=== PATIENT | female | born 1955 | race Caucasian/White ===

== ENCOUNTER 2019-12-26 14:16 | Outpatient (CLI) | payer MEDICARE, MEDICAID, SELFPAY ==
--- NOTE | 2019-12-26 19:27 | ONC CON_ITS ---
Dr. Smith Trinidad Patient Note Patient: Amanda Calle Unit #: [id number]: 1955 Dicatated By: Perez Mtz M.D.Date of Visit: December 26, 2019 Onc MED New Patient/Consult Referring Physician: Trini Nassar Chief Complaint: Colon cancer and anemia. 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 She also has iron deficiency anemia. Her colon cancer has been diagnosed in May 2017 after she had presented to the emergency room with abdominal pain and constipation. Her CT abdomen/pelvis showed circumferential irregular wall thickening with pericolonic fat induration involving a segment of a sending colon measuring at least 8.1 cm. There were associated right lower quadrant lymph nodes measuring up to 9 mm. Colonoscopy showed a partially obstructing malignant appearing mass at the hepatic flexure estimated at 6 x 5 cm. Biopsy showed low-grade infiltrating adenocarcinoma. Her CEA was elevated at 8.8 ng/mL. She opted to go to [facility] in [place] for surgery. I do not have those reports available. Her tumor apparently was able to be resected. She indicates that there were involved lymph nodes, but she declined any further treatment. In October she was seen for a follow-up visit by Eileen Valdez. She was found to be significantly anemic with her CBC on 11/07/2019 showed hemoglobin low at 8.0 g with white blood cell count 9100 and platelet count 329,000. The red cell indices were hypochromic/microcytic. Her repeat CBC on 11/28/2019 showed hemoglobin still low at 9.1 g with white blood cell count 11,200 and platelet count 429,000. Comprehensive metabolic profile at that time was unremarkable. Her renal function was normal with BUN 8 and creatinine 0.74 mg/dL. The total bilirubin and liver enzymes were normal. Her serum iron was low at 26 mcg/dL with transferrin saturation 5%. Ferritin also was low at 4 ng/mL. Her vitamin B12 level was normal at 355 pg/mL. She complains that she has been feeling tired all the time. She does not have much activity, but she is living independently and doing housework. ECOG score is 1. Her appetite is not good. Her weight is down a little. She does not have fever or night sweats. She does have shortness of breath. She has cough which is sometimes productive of clear or white mucus. She does not complain of chest pain. She has not been having nausea. She has had ongoing problems with constipation and at times she has had some pain in the right lower quadrant area. She has not been aware of any blood in the stool. Bladder function has been okay. She has generalized joint pain. It is being managed with a long-acting oxycodone preparation in combination with hydrocodone/APAP. She does not complain of headache or dizziness. She does have numbness/tingling in her hands and feet, but it is intermittent. She also complains of having a lot of muscle cramping. Past Medical History: Her medical history includes chronic obstructive pulmonary disease, type II diabetes, hyperlipidemia, hypertension, obstructive sleep apnea, and osteoarthritis. She has a history of diverticulitis. Past Surgical History: Her other surgical/procedural history includes appendectomy and cholecystectomy, colonoscopy in 2013 and in May 2017, hemorrhoidectomy, right carpal tunnel release, and right knee surgery. Medications: Baclofen 0.5 Tablet (of 10 mg) Oral t.i.d. PRN, Benadryl Allergy 2 Tablet (of 25 mg) Oral at bedtime, calcium magnesium zinc 1 Tablet at bedtime, Cetirizine HCl 1 Tablet (of 10 mg) Oral daily, Cinnamon 1 Capsule (of 1000 mg) Oral at bedtime, ClearLax 1 tablespoonful(s) Powder Oral PRN, [facility] Senna 1 Tablet (of 8.6 mg) Oral daily, Docusate Sodium 1 Capsule (of 100 mg) Oral daily, Folic Acid 1 Tablet (of 800 mcg) Oral at bedtime, glipiZIDE 1 Tablet (of 10 mg) Oral b.i.d. PRN, HYDROcodone-Acetaminophen 1 Tablet (of 10-325 mg) Oral four times a day PRN, Ibuprofen 3 Capsule (of 200 mg) Oral PRN, Linzess 1 Capsule (of 145 mcg) Oral PRN, Melatonin 1 Tablet (of 10 mg) Oral at bedtime, Montelukast Sodium 1 Tablet (of 10 mg) Oral daily, ProAir HFA 1 Puff(s) (of 108 (90 base) mcg/act) Aerosol, solution Inhalation t.i.d. PRN, Turmeric 1 Capsule (of 500 mg) Oral at bedtime, Vitamin D3 2 Capsule (of 1000 Units) Oral at bedtime, Xtampza ER 1 Capsule Capsule Delayed Release Oral b.i.d. Allergies: Aspirin, Keflex, Metals, and Sulfa Antibiotics. Social History: Ms. Calle is . She has a long history of smoking, in the range of 1 pack of cigarettes daily. She does not drink alcohol. Family History: Father of colon cancer at age 62 and a sister with colon cancer in her 50s. Mother age 87, cause unknown to the patient. Review Of Symptoms: Constitutional - Activity has decreased. She has a lot of fatigue. She is able to do work around the house. Appetite is good. She has lost a couple of pounds. No fever, chills, hot flashes, or night sweats. ECOG score is 1, Eyes - No change in vision, ENMT - No hearing loss or tinnitus. She has sinus congestion/drainage. No mouth sores. No sore throat or difficulty swallowing, Hematologic/Lymphatic - No abnormal bruising or bleeding, Respiratory - She has intermittent shortness of breath with activity. She has a dry cough most of the time. It is sometimes jproductive of clear sputum. No pleuritic pain or hemoptysis, Cardiovascular - No angina pain. No palpitations, Gastrointestinal - No nausea or vomiting. No heartburn or acid reflux. She has chronic constipation. She has occasional aching pain in her lower abdomen. No blood in the stool or black stools, Genitourinary (F) - No dysuria or hematuria. No urinary frequency. No urgency or incontinence, Musculoskeletal - She has constant aching pain in her bones, Integumentary - No skin rashes, Neurologic - No headache. She has dizziness if she stands up quickly. She has intermittent numbness/paresthesias in her feet, legs, and hands. She has frequent muscle spasms, Psychiatric - No anxiety or depression. No insomnia. Vital Signs: Performed on December 26, 2019 15:16: 6, 27.84, 1.79 sq.m, 64.00 in, 98 %, 79 /min, 24 /min, 134/72 mm(hg), 98.4 F, and 162.2 lbs (HIGH). Physical Examination: Constitutional - She appears generally weak and pale, and she is short of breath with effort, Eyes - Sclerae nonicteric. Conjunctivae clear, ENMT - No lesions noted in the oral cavity, Neck - No mass or thyromegaly, Hematologic/Lymphatic - No cervical, clavicular, or axillary adenopathy, Respiratory - Lungs show diminished air movement bilaterally. There are mild expiratory rhonchi bilaterally and there is also mild wheezing, Cardiovascular - Heart rhythm is regular. There is no murmur, gallop, or rub noted, Abdomen - Moderately distended and firm. Liver and spleen are not enlarged. There is no abdominal mass or ascites noted and there is no inguinal adenopathy, Back/Spine - No spine or CVA tenderness noted, Extremities - No edema. Dorsalis pedis pulses are palpable bilaterally, Integumentary - No rashes. No suspicious skin lesions noted, Neurologic - No focal neurologic deficits noted. Impression: 1. Patient with low-grade infiltrating adenocarcinoma involving the hepatic flexure of the colon. She underwent surgical resection in May 2017. Staging information is not available at this time. She declined any further treatment. 2. She has iron deficiency anemia. It is uncertain to what extent that may be due to GI blood loss versus inadequate oral iron absorption. In the past she has been intolerant of oral iron supplements due to constipation and nausea. Her other medical illnesses include: 3. COPD, which appears to be poorly controlled. 4. Hypertension. 5. Hyperlipidemia. 6. Type 2 diabetes. 7. Obstructive sleep apnea. 8. Osteoarthritis with chronic pain. 9. She has chronic constipation. Plan: As she clearly has iron deficiency anemia and she has been intolerant of oral iron supplements, she will be scheduled for parenteral iron replacement with 2 infusions of Injectafer. She will have additional laboratory studies at that time which will include a CEA level. In the meantime, I will request records from [facility]. In addition, I will see if I get her started on a pulmonary nebulizer and I also will have her start Spiriva for the COPD, subject to verification of insurance coverage. I also have recommended that she change her bowel regimen to senna with docusate 2 tablets once or twice daily. I will also consider adding Amitiza later, as necessary. Signed By: Perez Mtz M.D. <<Signature on File>>
== END 2019-12-26 14:17 | disposition home or self-care (01) ==
PROVIDERS: PCP Nurse Practitioner Family; Visit Provider Internal Medicine Medical Oncology
DX: D50.9 Iron deficiency anemia, unspecified (principal); C18.3 Malignant neoplasm of hepatic flexure; J44.9 Chronic obstructive pulmonary disease, unspecified; I10 Essential (primary) hypertension; E78.5 Hyperlipidemia, unspecified; F17.210 Nicotine dependence, cigarettes, uncomplicated; E11.9 Type 2 diabetes mellitus without complications; G47.33 Obstructive sleep apnea (adult) (pediatric); M19.90 Unspecified osteoarthritis, unspecified site; K59.09 Other constipation; Z90.49 Acquired absence of other specified parts of digestive tract
CPT/HCPCS: 99215

== ENCOUNTER 2020-01-03 13:59 | Outpatient (CLI) | payer MEDICARE, MEDICAID, SELFPAY ==
[2020-01-03] MEDS: sodium chloride 0.9% (100 ml) 100 ML (15:05)
[2020-01-03] MEDS: ferric carboxy (IVPB) 750 MG in sodium chloride 0.9% (100 ml) 100 ML 345 MG IV (15:05)
== END 2020-01-03 14:00 | disposition home or self-care (01) ==
PROVIDERS: PCP Nurse Practitioner Family; Visit Provider Internal Medicine Medical Oncology
DX: D50.9 Iron deficiency anemia, unspecified (principal)
CPT/HCPCS: 96365; J1439

== ENCOUNTER 2020-01-04 08:55 | Outpatient (CLI) | payer MEDICARE, MEDICAID, SELFPAY ==
[2020-01-04 10:31] LABS: Basophils # 0.1 10^3/uL (0.0-0.1); Basophils % 0.9 %; Eosinophils # 0.4 10^3/uL (0.0-0.8); Eosinophils % 3.7 %; Hematocrit 32.3 % (37.0-47.0); Lymphocytes # 4.2 10^3/uL (0.8-4.8); Lymphocytes % 36.1 %; Mean Corpuscular HGB Conc 27.9 g/dL (30.0-36.0); Mean Corpuscular Hemoglobin 19.6 pg (28.0-34.0); Mean Corpuscular Volume 70.4 fL (81-99); Mean Platelet Volume 10.7 fL (7.4-10.4); Monocytes # 0.9 10^3/uL (0.2-0.9); Monocytes % 7.4 %; Neutrophils % 51.1 %; Nucleated Red Blood Cells % 0 %; Platelet Count 366 10^3/cmm (130-400); Red Blood Count 4.59 10^6/uL (4.1-5.3); Red Cell Distribution Width 18.6 % (12.1-15.1); White Blood Count 11.6 10^3/uL (4.0-10.0)
[2020-01-04 10:57] LABS: Alanine Aminotransferase 14 U/L (0-33); Albumin Level 4.2 g/dL (3.5-5.2); Alkaline Phosphatase 86 IU/L (35-105); Anion Gap 15.8 (5-19); Aspartate Amino Transferase 15 U/L (0-32); Blood Urea Nitrogen 6 mg/dL (8-23); Calcium 10.1 mg/dL (8.5-10.5); Carbon Dioxide 28 mmol/L (22-29); Chloride 101 mmol/L (98-107); Globulin 2.8 g/dL (1.3-4.6); Glomerular Filtration Rate 101.3 mL/min (90-130); Glucose 81 mg/dL (65-115); Osmolality Calculated 287 mOsm/kg (285-295); Potassium 3.8 mmol/L (3.5-5.1); Sodium 141 mmol/L (136-145); Thyroid Stimulating Hormone 3.58 uIU/mL (0.27-4.20); Total Bilirubin 0.2 mg/dL (0.15-1.2)
[2020-01-04 11:28] LABS: Erythrocyte Sedimentation Rate 33 mm/hr (0-15)
[2020-01-04 11:29] LABS: Slide Review Slide Review Perform
[2020-01-04 14:37] LABS: Carcinoembryonic Antigen 6.7 ng/mL (0.0-4.7)
[2020-01-04 14:56] LABS: Iron 544 ug/dL (37-145); Percent Saturation 92.6 % (20-50); Total Iron Binding Capacity 587 mcg/dl; Unsaturated Iron Binding 43 ug/dL (112-347)
[2020-01-07 13:11] LABS: Anti-Nuclear Antibody Screen NEGATIVE (NEGATIVE)
== END 2020-01-04 08:56 | disposition home or self-care (01) ==
LOC: ONCMED 12:06
PROVIDERS: PCP Nurse Practitioner Family; Visit Provider Internal Medicine Medical Oncology
DX: C18.3 Malignant neoplasm of hepatic flexure (principal); D50.9 Iron deficiency anemia, unspecified; E03.9 Hypothyroidism, unspecified; E78.5 Hyperlipidemia, unspecified; I10 Essential (primary) hypertension; G47.33 Obstructive sleep apnea (adult) (pediatric); E11.9 Type 2 diabetes mellitus without complications; J44.9 Chronic obstructive pulmonary disease, unspecified; M19.90 Unspecified osteoarthritis, unspecified site; K57.92 Diverticulitis of intestine, part unspecified, without perforation or abscess without bleeding
CPT/HCPCS: 80053; 82378; 83540; 83550; 84443; 85025; 85651; 86038; 86431

== ENCOUNTER 2020-01-14 13:01 | Outpatient (CLI) | payer MEDICARE, MEDICAID, SELFPAY ==
[2020-01-14] MEDS: ferric carboxy (IVPB) 750 MG in sodium chloride 0.9% (100 ml) 100 ML 345 MG IV (13:19)
== END 2020-01-14 13:02 | disposition home or self-care (01) ==
LOC: ONCMED 13:04
PROVIDERS: PCP Nurse Practitioner Family; Visit Provider Internal Medicine Medical Oncology
DX: D50.8 Other iron deficiency anemias (principal); C18.3 Malignant neoplasm of hepatic flexure
CPT/HCPCS: 96365; J1439

== ENCOUNTER 2020-08-11 11:51 | Outpatient (CLI) | payer MEDICARE, MEDICAID, SELFPAY ==
--- NOTE | 2020-08-11 12:00 | CT_ITS ---
WS: [id number] CT ABDOMEN AND PELVIS WITH CONTRAST HISTORY: LYMPHADENOPATHY, COLON CANCER TECHNIQUE: Imaging performed of the abdomen and pelvis with IV contrast. Single phase imaging of the abdomen. Coronal and sagittal reformats are submitted. All CT scans at [facility] use at least one of these dose optimization techniques: automated exposure control; mA and/or kV adjustment per patient size (includes targeted exams where dose is matched to clinical indication); or iterativ e reconstruction. IV CONTRAST: Omnipaque 300; 95 mL IV. Oral contrast: Yes. DLP: 1145.16 mGycm COMPARISON: 06/02/2017 Lower thorax: Lung bases are clear. Heart is normal size. Small hiatal hernia. Liver/biliary system: Moderate enlargement the liver with diffuse hepatic steatosis. No metastatic di sease or mass. No bile duct dilatation. Gallbladder: Status post cholecystectomy. Pancreas: Normal size with calcification in the body. Spleen: Normal. Adrenal glands: Normal. Right kidney: Normal. Left kidney: Normal. Aorta: Moderate atherosclerosis with no aneurysm. Lymphadenopathy: None. Free fluid: None. GI tract: No GI tract obstruction. The appendix is been surgically removed. Partial RIGHT colectomy. No recurrent mass at the anastomosis. There is extensive wall thickening and numerous diverticula in the sigmoid colon. The lumen is narrowed but at this time there is no obstruction of the proximal col on. Abdominal wall: Unremarkable abdominal wall. No hernia. Pelvis: Well-distended urinary bladder. Uterus is anteverted. Cannot comment on the endometrium by CT . No pelvic masses. Bones: Partial fusion across the anterior vertebral bodies, T10-T12. CT/CT abdomen pelvis w con* [id number] IMPRESSION: 1. Prior RIGHT colectomy. No recurrent mass or obstruction. 2. Severe sigmoid diverticulosis without acute diverticulitis. There is marked narrowing of the lumen and wall thickening. No abscess or free fluid. 3. Prior cholecystectomy. 4. Hepatomegaly and hepatic steatosis. 5. Moderate atherosclerosis aorta.
[2020-08-11] MEDS: iohexol 300 mg/mL 50 mL Btl PO (12:34)
[2020-08-11] MEDS: iohexol 300 mg/mL 100 mL Btl IV (14:45)
== END 2020-08-11 11:52 | disposition home or self-care (01) ==
LOC: RADWPI 11:55
PROVIDERS: PCP Nurse Practitioner Family; Visit Provider Nurse Practitioner Family
DX: R59.1 Generalized enlarged lymph nodes (principal); D64.9 Anemia, unspecified; C18.9 Malignant neoplasm of colon, unspecified; I70.0 Atherosclerosis of aorta; R16.0 Hepatomegaly, not elsewhere classified; K76.0 Fatty (change of) liver, not elsewhere classified; Z90.49 Acquired absence of other specified parts of digestive tract; K57.30 Diverticulosis of large intestine without perforation or abscess without bleeding
CPT/HCPCS: 74177; Q9967

== ENCOUNTER 2020-10-01 14:03 | Outpatient (CLI) | payer MEDICARE, MEDICAID, SELFPAY ==
--- NOTE | 2020-10-01 14:15 | USCV_ITS ---
Amanda Calle Age: 65 Gender: F : 1955 Exam Date: 10/01/2020 14:42 Ordering Phys: Zaria Ellis MD ([email or web address]) Technologist: Kristy Cevallos [place] [facility] [place]: PAIN IN LEGS Risk Factors: DM AND SMOKER Previous Vascular Surgery: None per pt RIGHT LEFT BP: 174.0 / 76.00 BP: 165.0/ 80.00 0 0 Waveform Velocity (cm/s) Velocity (cm/s) Waveform Biphasic 117.5 Iliac Prox 165.7 Biphasic Biphasic 92.5 Iliac Mid 115.8 Biphasic Biphasic 118.8 Iliac Distal 125.5 Monophasic Biphasic 86.9 CLAIM REVIEW MEDICAL DIRECTOR 98.1 Monophasic Biphasic 123.9 SFA Prox 154.4 Monophasic Biphasic SFA Mid Monophasic 106.2 96.5 Biphasic 112.6 SFA Dist 90.5 Monophasic Biphasic 55.2 POP 94.0 Biphasic Monophasic 43.6 JALOUSIE INSTALLER 55.2 Monophasic Biphasic 53.5 DPA 69.4 Monophasic 0.8 ANDI 0.9 FINDINGS RT JALOUSIE INSTALLER 120 RT DPA 140 LT JALOUSIE INSTALLER 150 LT DPA 120 Mild to moderate diffuse plaques in the middle and popliteal arteries bilaterally Abnormal resting ANDI of 0.8 on the right side and 0.9 on the left side. CONCLUSIONS 1. Diminished resting ABIs bilaterally, has a history of mild peripheral artery disease 2. Mild to moderate diffuse plaques in the femoral and popliteal arteries bilaterally Consider exercise ABIs, to further evaluate the functional significance Dr Zehra Arreola MD [facility] (Electronically Signed) Final Date: 02 October 2020 09:21 S
--- NOTE | 2020-10-01 15:00 | USCV_ITS ---
Amanda Calle Age: 65 Gender: F : 1955 Exam Date: 10/01/2020 14:24 Ordering Phys: Zaria Ellis MD ([email or web address]) Technologist: Kristy Cevallos [place] [facility] [place]ication: CHEST PAIN SOB BP: 120 / 56 HR: 63 Rhythm: Sinus Technical Quality: Adequate MEASUREMENTS (Male / Female) Normal Values 2D ECHO LV Diastolic Diameter PLAX 3.1 cm 4.2 - 5.9 / 3.9 - 5.3 cm LV Systolic Diameter PLAX 2.4 cm LV Chamber Size 2.9 cm IVS Diastolic Thickness 1.1 cm 0.6 - 1.0 / 0.6 - 0.9 cm IVS Systolic Thickness 2.0 cm LVPW Diastolic Thickness 1.3 cm 0.6 - 1.0 / 0.6 - 0.9 cm LVPW Systolic Thickness 1.6 cm RV Chamber Size 2.4 cm LVOT Diameter 2.1 cm LV Ejection Fraction 2D Teich 45.9 % LV Ejection Fraction MOD 2C 49.3 % LV Ejection Fraction 2C AL 49.1 % LA Diameter 3.7 cm LA Width 2.5 cm LA Height 4.4 cm RA Width 2.2 cm RA Height 3.8 cm Aorta at Sinotubular Diameter 3.4 cm M-MODE LV Diastolic Diameter MM 5.6 cm 4.2 - 5.9 / 3.9 - 5.3 cm LV Systolic Diameter MM 3.8 cm LV Ejection Fraction MM Teich 60.3 % IVS Diastolic Thickness MM 0.9 cm 0.6 - 1.0 / 0.6 - 0.9 cm IVS Systolic Thickness MM 1.5 cm LVPW Diastolic Thickness MM 1.1 cm 0.6 - 1.0 / 0.6 - 0.9 cm LVPW Systolic Thickness MM 1.2 cm RV Diastolic Diameter MM 1.2 cm Aortic Annulus Diameter 3.5 cm LA Ao Ratio MM 1.2 MV E Point Septal Separation 0.2 cm DOPPLER AV Peak Velocity 179.0 cm/s LVOT Peak Velocity 88.3 cm/s AV Area Cont Eq vti 2.0 cm squared AV Area Cont Eq pk 1.7 cm squared MV Area PHT 3.1 cm squared Mitral E to A Ratio 0.9 MV E' Velocity 44.0 cm/s Mitral E to MV E' Ratio 9.6 Mitral E to LV E' Lateral Ratio 11.5 Mitral E to LV E' Septal Ratio 8.2 TR Peak Velocity 165.4 cm/s TR Peak Gradient 10.9 mmHg TR Mean Velocity 115.1 cm/s TR Mean Gradient 6.1 mmHg TR Velocity Time Integral 43.5 cm TV Peak E Velocity 67.0 cm/s Right Atrial Pressure 3.0 mmHg Pulmonary Artery Systolic Pressu 13.9 mmHg PV Peak Velocity 54.0 cm/s RV Acceleration Time 0.1 s RV Ejection Time 0.3 s RV AcT/ET 0.5 FINDINGS Left Ventricle Normal left ventricular cavity size. Normal left ventricular systolic function. No regional wall motion abnormalities. Left ventricular ejection fraction is estimated at 60 %. Grade I/IV diastolic dysfunction (abnormal relaxation filling pattern), normal to mildly elevated filling pressures. Right Ventricle The right ventricle is normal in size and function. Right Atrium The right atrium is normal in size. Left Atrium The left atrium is normal in size. Mitral Valve Mildly thickened mitral valve. No mitral valve stenosis. Trace mitral valve regurgitation. Aortic Valve Structurally normal aortic valve without significant sclerosis or stenosis. There is no aortic regurgitation. Tricuspid Valve Structurally normal tricuspid valve without significant stenosis or regurgitation. Pulmonary artery systolic pressure is normal. Pulmonic Valve Structurally normal pulmonic valve without significant stenosis. There is no pulmonic regurgitation. Pericardium Normal pericardium without effusion. Aorta Normal ascending aorta dimension. CONCLUSIONS 1-Normal left ventricular cavity size. Normal left ventricular systolic function. No regional wall motion abnormalities. Left ventricular ejection fraction is estimated at 60 %. Grade I/IV diastolic dysfunction (abnormal relaxation filling pattern), normal to mildly elevated filling pressures. 2-Mildly thickened mitral valve. No mitral valve stenosis. Trace mitral valve regurgitation. 3-There is no pericardial effusion. 4-No significant valve abnormalities. 5-Pulmonary artery systolic pressure is within normal limits. 6-Right atrial pressure is around 5 mm of mercury. 7-There are no prior echocardiogram studies to compare. Zaria Ellis MD (Electronically Signed) Final Date: 02 October 2020 17:56 S
== END 2020-10-01 14:04 | disposition home or self-care (01) ==
LOC: US 14:05
PROVIDERS: PCP Nurse Practitioner Family; Visit Provider Internal Medicine Cardiovascular Disease
DX: R06.02 Shortness of breath (principal); R07.9 Chest pain, unspecified; I34.0 Nonrheumatic mitral (valve) insufficiency; M79.604 Pain in right leg; M79.605 Pain in left leg; I70.8 Atherosclerosis of other arteries
CPT/HCPCS: 93306; 93925

== ENCOUNTER 2020-10-10 07:08 | Outpatient (CLI) | payer MEDICARE, MEDICAID, SELFPAY ==
[2020-10-10 07:13] VITALS: BMI 31.2
--- NOTE | 2020-10-10 08:20 | ECG_ITS ---
[facility] Test Date: 2020-10-10 Pat Name: Amanda Calle Department: Room: Gender: Female [employer]: : 1955 Requested By: Zaria Ellis Order Number: [id number] Patricia MD: ZARIA ELLIS Interpretive Statements NAME OF STUDY: LEXISCAN SESTAMIBI STRESS TEST INDICATION: Chest Pain, NOTE: Please note that this is the electrocardiogram portion of the Lexiscan/Sestamibi stress test. The perfusion scan will be documented separately. DATA: Baseline heart rate was 57 beats per minute. Baseline blood pressure was 160/62 millimeters of mercury. Target heart rate was 157. Maximum heart rate achieved was 91. which was 57 % of the predicted target heart rate. Maximum blood pressure was 213/92 millimeters of mercury. The reason for ending the test was completion of the protocol. The patient did not experience any symptoms. ELECTROCARDIOGRAM: BASELINE: Sinus rhythm. Normal axis. Otherwise, no ST-T changes suggestive of ischemia noted. No arrhythmia noted. EXERCISE: After Lexiscan injection, no ST-T changes suggestive of ischemic noted. No arrhythmia noted. 1. EKG not suggestive of ischemia 2. Lexiscan injection unremarkable. 3. Perfusion scan will be documented separately. Electronically Signed On 10-10-2020 19:35:36 PARACHUTE TAPER by ZARIA ELLIS [id number]
--- NOTE | 2020-10-10 08:20 | NMCV_ITS ---
NM tran perf SPECT r/s* [id number] Amanda Calle Age: 65 Gender: F : 1955 Exam Date: 10/10/2020 08:20 Ordering Phys: Zaria Ellis MD ([email or web address]) Technologist: CHERI Palmer Exam Location: [facility] Indications: SHORTNESS OF BREATH STRESS TEST Please [facility] IMAGE PROTOCOL Rest/Stress 1 Lexiscan Day Radiopharmaceutical Dose (mCi) Administration Site Administered by Rest: Tc-99m 10.7 IV CHERI Selby Sestamibi Stress:Tc-99m 32.8 IV CHERI Selby Sestamibi Rest: 10-Oct-2020 60 Discovery 630 Stress: 10-Oct-2020 30 Discovery 630 0.4mg Lexiscan. Supine position only as patient was unable to lay prone. SPECT RESULTS Technical Quality: Excellent Raw Data Analysis: Normal Image Corrections: No attenuation or motion correction applied Summed Stress Score: 0 Summed Rest Score: 0 Summed Difference Score: 0 PERFUSION FINDINGS SPECT images demonstrate homogeneous tracer distribution throughout the myocardium. FUNCTIONAL RESULTS (calculated via Gated SPECT) Stress Image LV EF (%): 71 Stress EDV (mL):79 TID: 1.05 Stress ESV (mL):23 Rest Image LV EF (%): 71 FUNCTIONAL FINDINGS: There is normal left ventricular systolic function. IMPRESSIONS Myocardial perfusion imaging is normal low probability for obstructive coronary disease. EKG segment will be documented separately. Zaria Ellis MD (Electronically Signed) Final Date: 10 October 2020 19:42 S
[2020-10-10] MEDS: regadenoson 0.4 Mg/5 ml Syringe IVP (09:24)
[2020-10-10 09:29] VITALS: BP 136/84; PULSE 78
== END 2020-10-10 07:09 | disposition home or self-care (01) ==
LOC: CDL 07:09
PROVIDERS: PCP Nurse Practitioner Family; Visit Provider Internal Medicine
DX: R06.02 Shortness of breath (principal); R07.2 Precordial pain
CPT/HCPCS: 78452; 93017; A9500; J2785

== ENCOUNTER → 2020-12-04 14:27 | Outpatient (BNVA) | payer MEDICARE, MEDICAID, SELFPAY | PROVIDERS: PCP Nurse Practitioner Family; Visit Provider Internal Medicine Pulmonary Disease | DX: J44.9 Chronic obstructive pulmonary disease, unspecified (principal) | CPT/HCPCS: 87635 ==

== ENCOUNTER 2020-12-09 08:55 | Outpatient (CLI) | payer MEDICARE, MEDICAID, SELFPAY ==
--- NOTE | 2020-12-09 09:08 | CT_ITS ---
WS: [id number] LDCT LUNG CANCER SCREENING HISTORY: NICOTINE Dependence, cigarettes TECHNIQUE: Axial imaging performed from the apices to 1 cm below the costophrenic angles. Coronal and sagittal reformats are submitted with axial MIP series. All CT scans at [facility] use at least one of these dose optimization techniques: automated exposure control; mA and/or kV adjustment per patient size (includes targeted exams where dose is matched to clinical indication); or iterativ e reconstruction. DLP: 51.81 mGy.cm DIvol: 1.58 mGy COMPARISON: None available. Diagnostic quality: Satisfactory Lung Nodules: None. Lungs: No abnormality. Heart: Normal size heart. Other findings: There is focal asymmetric thickening of the esophageal wall just below the level of t he mayelin which needs to be further evaluated. Hepatic steatosis. CT/CT lung screening [id number] IMPRESSION: LUNG-RADS: 1S-Negative with Significant Findings FOLLOW UP: 12 Month: Continue annual screening with LDCT OTHER FINDINGS (S MODIFIER): Mid esophageal wall asymmetric thickening needs fu rther evaluation to exclude esophagitis or neoplasm. Consider chest CT to follo w up with IV contrast or endoscopy.
--- NOTE | 2020-12-09 14:11 | PFTS_ITS ---
Date of Study:12/09/20 Date of Dictation: 12/12/2020 MECHANICS: Prebronchodilator forced vital capacity (FVC) is reduced. Prebronchodilator forced expiratory volume in one second (FEV1) is moderately reduced 65%. FEV1/FVC is reduced. There is no postbronchodilator study performed. FLOW VOLUME LOOP: Scooping of expiratory limb suggestive of airway obstruction . LUNG VOLUMES: Total lung capacity (TLC) is normal. Increased RV and RV/TLC suggest mild air trapping and hyperinflation. DIFFUSING CAPACITY FOR CARBON MONOXIDE: Mildly reduced 79% . INTERPRETATION: The pulmonary function tests are consistent with moderate obstructive ventilatory defect with mild air trapping and hyperinflation. There is mild gas transfer defect. Correlate clinically. MTDD
== END 2020-12-09 08:56 | disposition home or self-care (01) ==
LOC: RAD 08:58
PROVIDERS: PCP Nurse Practitioner Family; Visit Provider Internal Medicine Pulmonary Disease
DX: Z12.2 Encounter for screening for malignant neoplasm of respiratory organs (principal); F17.210 Nicotine dependence, cigarettes, uncomplicated
CPT/HCPCS: 71271; 94010; 94618; 94726; 94729

== ENCOUNTER 2021-01-07 20:00 | Outpatient (CLI) | payer MEDICARE, MEDICAID, SELFPAY | END 2021-01-07 20:01 | disposition home or self-care (01) | LOC: SLEEP 01-08 08:29 | PROVIDERS: PCP Nurse Practitioner Family; Visit Provider Internal Medicine Pulmonary Disease | DX: G47.33 Obstructive sleep apnea (adult) (pediatric) (principal) | CPT/HCPCS: 95811 ==

== ENCOUNTER → 2021-05-12 12:15 | Outpatient (BNVA) | payer MEDICARE, MEDICAID, SELFPAY | PROVIDERS: PCP Nurse Practitioner Family; Visit Provider Surgery | DX: Z11.52 Encounter for screening for COVID-19 (principal); Z20.822 Contact with and (suspected) exposure to COVID-19 | CPT/HCPCS: 87635 ==

== ENCOUNTER 2021-05-18 06:50 | Day surgery (SDC) | payer MEDICARE, MEDICAID, SELFPAY ==
[2021-05-14 13:42] VITALS: BMI 31.2
--- NOTE | 2021-05-18 07:01 | W.PM.OPSFHP ---
Same Day Surgery H&P Indication for Procedure/HPI DATE OF PROCEDURE: May 18, 2021 CHIEF COMPLAINT/INDICATIONFOR SURGICAL PROCEDURE: EGD/colonosocpy PREOP DIAGNOSIS: esophageal thickening, colon cancer PLANNED PROCEDRUE: Operation Date: 05/18/21 08:30 Proposed Procedures p EGD [id number] z85.038 k22.8 k21.9(Not Applicable) - Martinez Aguillon MD s Colonoscopy(Not Applicable) - Martinez Aguillon MD Medications/Allergies* Home Medications Medication Instructions Recorded Confirmed Type albuterol 90 mcg/actuation aerosol 90 mcg INHALATION QID PRN 09/12/19 05/14/21 History inhaler cetirizine 10 mg tablet 10 mg PO DAILY 09/12/19 05/14/21 History docusate sodium 100 mg capsule 200 mg PO DAILY cap 09/12/19 05/14/21 History hydrocodone 10 mg-acetaminophen 1 tab PO Q6H PRN 09/12/19 05/14/21 History 325 mg tablet oxycodone myristate 18 mg capsule 18 mg PO BID 09/12/19 05/14/21 History sprinkle extended release 12hr(DON'T CRUSH) Tumeric with Christie 1 tab PO DAILY 09/02/20 05/14/21 History apple cider vinegar 500 mg tablet 500 mg PO DAILY 09/02/20 05/14/21 History baclofen 10 mg tablet 5 mg PO TID tab 09/02/20 05/14/21 History beet root 1 tab PO EVERY OTHER DAY 09/02/20 05/14/21 History cholecalciferol (vitamin D3) 50 100 mcg PO DAILY 09/02/20 05/14/21 History mcg (2,000 unit) capsule ibuprofen 200 mg capsule 200 mg PO Q6H PRN 09/02/20 05/14/21 History linaclotide 145 mcg capsule 145 mcg PO DAILY PRN 09/02/20 05/14/21 History melatonin 10 mg capsule 10 mg PO DAILY 09/02/20 05/14/21 History milk thistle 150 mg capsule 150 mg PO DAILY 09/02/20 05/14/21 History montelukast 10 mg tablet 10 mg PO DAILY 09/02/20 05/14/21 History nitroglycerin 0.4 mg sublingual 0.4 mg SUBLINGUAL Q5M PRN 09/02/20 05/14/21 History tablet sennosides 8.6 mg capsule 8.6 mg PO BID PRN 09/02/20 05/14/21 History sour mckinley extract 1,000 mg 1,000 mg PO DAILY 09/02/20 05/14/21 History capsule vitamin B complex 1 tab PO DAILY 09/02/20 05/14/21 History albuterol sulfate 2.5 mg INHALATION Q4H PRN 11/17/20 05/14/21 History diphenhydramine HCl 25 mg capsule 25 mg PO DAILY PRN cap 12/04/20 05/14/21 History cilostazol 50 mg PO DAILY 05/14/21 05/14/21 History ketoconazole 1 applic TOPICAL DAILY PRN 05/14/21 05/14/21 History pregabalin 50 mg PO TID 05/14/21 05/14/21 History sitagliptin [Januvia] 100 mg PO DAILY 05/14/21 05/14/21 History triamcinolone acetonide 1 applic TOPICAL BID PRN 05/14/21 05/14/21 History Allergies/Adverse Reactions Allergy/AdvReac Type Severity Reaction Status Date / Time aspirin Allergy Unknown Unknown Verified 04/27/21 13:45 cephalexin [From Keflex] Allergy Unknown Unknown Verified 04/27/21 13:45 Sulfa (Sulfonamide Allergy Unknown Unknown Verified 04/27/21 13:45 Antibiotics) contact metal agent Allergy whitley skin Verified 04/27/21 13:45 Pertinent History/Comorbid Conditions* Medical History (Updated 01/23/21 @ 11:25 by Martinez Aguillon MD) Chronic constipation Claudication in peripheral vascular disease COPD (chronic obstructive pulmonary disease) Diabetes History of colon cancer Lymphoma Surgical History (Updated 01/23/21 @ 11:25 by Martinez Aguillon MD) H/O esophagogastroduodenoscopy History of colon resection (~2017) History of colonoscopy with polypectomy (~2017) History of hemorrhoidectomy History of laparoscopic cholecystectomy History of right knee joint replacement S/P appendectomy S/P cholecystectomy Family History (Updated 09/12/19 @ 09:07 by Cinthia Rutledge RN) Cancer Family/Other colon cancer Hypertension Family/Other Denies family history of Anesthesia complication Bleeding disorder Social History Smoking and tobacco status: former smoker Second hand smoke exposure: Yes Smoking risk assessment/counseling performed?: Yes Alcohol intake: never Adopted: No Lives independently: Yes Household members: none Housing: House Marital status: Current occupational status: disabled Pets and animals: Yes History of recent travel: No Current gender identity: Female Pertinent Exam Findings alert, oriented x 3 and regular rate & rhythm Recommendations Surgery/Procedure today Coding Level of Care Code Acute [employer] Line Worker for Sylwia Garza
--- NOTE | 2021-05-18 08:05 | ANES.PREANE2 ---
Pre-Anesthetic Assessment Pre-Anesthetic Assessment: Height/Weight: Height 1.52 m Weight 72.575 kg Preop Diagnosis: panendoscopy Proposed Procedure: Operation Date: 05/18/21 08:30 Proposed Procedures p EGD [id number] z85.038 k22.8 k21.9(Not Applicable) - Martinez Aguillon MD s Colonoscopy(Not Applicable) - Martinez Aguillon MD Was Beta Jarrett taken within 24 hours: Yes Was Clonidine taken within 24 hours: N/A Social: Social History: Tobacco and No alcohol Exam: Pre-Anes Outpt Exam: alert, oriented x 3 and regular rate & rhythm Airway: Submandibular: WNL Cervical ROM: WNL MP: 2 Pulmonary: Pulmonary: COPD, ELI and SOB CV/HEM: CV/HEM: Angina (Stable), CAD, HTN and PVD Metabolic: Metabolic: Morbid obesity Anesthetic Plan: ASA status: 3 Anesthesia: MAC Risk of > 500 ml blood loss (7ml/kg in children): No PFSH Anesthesia PFSH: Medical History Chronic constipation Claudication in peripheral vascular disease COPD (chronic obstructive pulmonary disease) Diabetes History of colon cancer Lymphoma Surgical History H/O esophagogastroduodenoscopy History of colon resection (~2016) History of colonoscopy with polypectomy (~2016) History of hemorrhoidectomy History of laparoscopic cholecystectomy History of right knee joint replacement S/P appendectomy S/P cholecystectomy Family History Family/Other Cancer colon cancer Hypertension Denies family history of Anesthesia complication Bleeding disorder Social History Smoking and tobacco status: former smoker Second hand smoke exposure: Yes Smoking risk assessment/counseling performed?: Yes Alcohol intake: never Adopted: No Lives independently: Yes Household members: none Housing: House Marital status: Current occupational status: disabled Pets and animals: Yes History of recent travel: No Current gender identity: Female Data Anesthesia Cardiac Studies: No Data to Display
[2021-05-18 08:21] VITALS: BP 152/85; PULSE 57; RESP 16; TEMP 36.2; O2SAT 98
[2021-05-18] MEDS: sodium chloride 0.9% 1,000 ML 30 ML IV (08:40)
[2021-05-18 09:40] LABS: Glucose Point of Care 101 mg/dL (70-110)
--- NOTE | 2021-05-18 09:50 | SUR.OPER ---
CLIP PLACED IN SIGMOID COLON FOR ACTIVE BLEED POST POLYP REMOVAL
[2021-05-18 09:55] VITALS: BP 176/92; PULSE 70; RESP 16; TEMP 36.1; O2SAT 95
[2021-05-18 10:10] VITALS: BP 147/78; PULSE 61; RESP 20; O2SAT 100
--- NOTE | 2021-05-18 15:52 | ANE.PACU2 ---
Inpatient post-anesthesia follow up: Airway intact: Yes Vital signs: Temperature 97 F Pulse Rate 61 Respiratory Rate 20 Blood Pressure 147/78 Pulse Oximetry 100 Oxygen Delivery Me thod Room Air Oxygen Flow Rate 2 Fraction of Inspir ed Oxygen Hydration adequate: Yes Nausea and vomiting: No Pain level: 1 Mental status: Baseline
== END 2021-05-18 10:30 | disposition home or self-care (01) ==
PROVIDERS: PCP Nurse Practitioner Family; Visit Provider Surgery
PROC: 0DJ08ZZ Inspection of Upper Intestinal Tract, Via Natural or Artificial Opening Endoscopic (ICD-10-PCS; CPT 43235; principal; 2021-05-18 08:30)
PROC: 0DJD8ZZ Inspection of Lower Intestinal Tract, Via Natural or Artificial Opening Endoscopic (ICD-10-PCS; CPT 45378; 2021-05-18 08:30)
DX: Z85.038 Personal history of other malignant neoplasm of large intestine (principal); K21.9 Gastro-esophageal reflux disease without esophagitis; K22.89 Other specified disease of esophagus; K44.9 Diaphragmatic hernia without obstruction or gangrene; K29.70 Gastritis, unspecified, without bleeding; K57.30 Diverticulosis of large intestine without perforation or abscess without bleeding; D12.5 Benign neoplasm of sigmoid colon; J44.9 Chronic obstructive pulmonary disease, unspecified; I25.10 Atherosclerotic heart disease of native coronary artery without angina pectoris; I10 Essential (primary) hypertension; E66.01 Morbid (severe) obesity due to excess calories; Z68.31 Body mass index [BMI] 31.0-31.9, adult; Z87.891 Personal history of nicotine dependence
CPT/HCPCS: 36416; 43239; 45385; 82962; 88305; 96360; 96361; J2704; J7030

== ENCOUNTER → 2021-12-17 13:16 | Outpatient (BNVA) | payer MEDICARE, MEDICAID, SELFPAY | PROVIDERS: PCP Nurse Practitioner Family; Visit Provider Internal Medicine Pulmonary Disease | DX: G47.33 Obstructive sleep apnea (adult) (pediatric) (principal); I73.9 Peripheral vascular disease, unspecified; J43.2 Centrilobular emphysema; Z12.2 Encounter for screening for malignant neoplasm of respiratory organs; Z85.038 Personal history of other malignant neoplasm of large intestine; R06.02 Shortness of breath; Z87.891 Personal history of nicotine dependence | CPT/HCPCS: 99214 ==

== ENCOUNTER → 2022-01-14 15:28 | Outpatient (BNVA) | payer MEDICARE, MEDICAID, SELFPAY | PROVIDERS: PCP Nurse Practitioner Family; Visit Provider Internal Medicine | DX: R06.09 Other forms of dyspnea (principal); I73.9 Peripheral vascular disease, unspecified; F17.210 Nicotine dependence, cigarettes, uncomplicated | CPT/HCPCS: 99214 ==

== ENCOUNTER 2022-03-18 12:22 | Outpatient (CLI) | payer MEDICARE, MEDICAID, SELFPAY ==
--- NOTE | 2022-03-18 12:44 | CT_ITS ---
WS: [id number] LDCT LUNG CANCER SCREENING TECHNIQUE: Noncontrast CT of the chest with coronal and sagittal reformatted images. CLINICAL INFORMATION: lung screening COMPARISON: CT December 09, 2020. DLP: 66.89 mGy.cm DIvol: Mean CTDIvol: 1.60 (mGy) All CT scans at [facility] use at least one of these dose optimization techniques: automat ed exposure control; mA and/or kV adjustment per patient size (includes targeted exams where dose is matched to clinical indication); or iterative reconstruction. FINDINGS: Persistent ovoid masslike lesion involving the esophageal lumen/wall eccentric to the LEFT with luminal narrowing just below the level of the mayelin measuring 2.2 x 2.5 x 2.7 cm. This results in severe esophageal narrowing. Recommend further evaluation with endoscopy. This is similar to previ ous study. Recommend further evaluation with endoscopy to exclude neoplasm. Contrast-enhanced CT ches t may also be helpful in further evaluation. There is also mild circumferential thickening of the GE junction and distal esophagus similar to previous. This can be seen with esophagitis but nonspecific. Tiny 3 mm nodule along the RIGHT major fissure and 3 mm subpleural nodule RIGHT lung base at the diap hragm. Moderate thoracic kyphosis. Partial ankylosis lower thoracic spine. Mild aortic calcification. Coronary calcification. Hepatomegaly. Adrenal glands small LEFT adrenal adenoma measuring [address]/CT lung screening [id number] IMPRESSION: Ovoid 2.5 cm soft tissue lesion just below the mayelin likely within the esophageal lumen or wall. This results in severe esophageal narrowing. Rec ommend further evaluation with endoscopy to assess for neoplasm. Contrast enhan doris CT chest may also be helpful for additional anatomic detail LUNG-RADS: 2S-Benign Appearance or Behavior with Significant Findings FOLLOW UP: See Report RECOMMEND FURTHER EVALUATION OF THE ABOVE-DESCRIBED PARAESOPHAGEAL LESION WITH ENDOSCOPY AND CONTRAST-ENHANCED CT. Notified Erik Montemayor MD at 03/19/2022 9:17 AM.
== END 2022-03-18 12:23 | disposition home or self-care (01) ==
LOC: RAD 12:23
PROVIDERS: PCP Nurse Practitioner Family; Visit Provider Internal Medicine Pulmonary Disease
DX: Z12.2 Encounter for screening for malignant neoplasm of respiratory organs (principal); F17.210 Nicotine dependence, cigarettes, uncomplicated
CPT/HCPCS: 71271

== ENCOUNTER → 2022-04-28 16:15 | Outpatient (BNVA) | payer MEDICARE, MEDICAID, SELFPAY | PROVIDERS: PCP Nurse Practitioner Family; Visit Provider Internal Medicine Pulmonary Disease | DX: M25.641 Stiffness of right hand, not elsewhere classified (principal); R93.3 Abnormal findings on diagnostic imaging of other parts of digestive tract; M25.642 Stiffness of left hand, not elsewhere classified; R06.02 Shortness of breath; G47.33 Obstructive sleep apnea (adult) (pediatric); J43.2 Centrilobular emphysema; Z85.038 Personal history of other malignant neoplasm of large intestine; I73.9 Peripheral vascular disease, unspecified; Z12.2 Encounter for screening for malignant neoplasm of respiratory organs; F17.210 Nicotine dependence, cigarettes, uncomplicated; Z71.6 Tobacco abuse counseling; R76.8 Other specified abnormal immunological findings in serum; K44.9 Diaphragmatic hernia without obstruction or gangrene; K22.89 Other specified disease of esophagus | CPT/HCPCS: 85651; 86140; 86160; 86162; 86200; 86215; 86225; 86235; 86255; 86376; 86431; 99214 ==

== ENCOUNTER → 2022-08-03 12:29 | Outpatient (BNVA) | payer MEDICARE, MEDICAID, SELFPAY | PROVIDERS: PCP Nurse Practitioner Family; Visit Provider Internal Medicine | DX: R76.8 Other specified abnormal immunological findings in serum (principal); M25.642 Stiffness of left hand, not elsewhere classified; M25.641 Stiffness of right hand, not elsewhere classified; Z71.6 Tobacco abuse counseling; J43.2 Centrilobular emphysema; Z11.59 Encounter for screening for other viral diseases; F17.210 Nicotine dependence, cigarettes, uncomplicated; R06.02 Shortness of breath; R53.83 Other fatigue; T78.40XA Allergy, unspecified, initial encounter | CPT/HCPCS: 36415; 72202; 73120; 73560; 82550; 82728; 82784; 83516; 83540; 83735; 84100; 84443; 84550; 85651; 86003; 86008; 86140; 86704; 86803; 87340; 99203 ==

== ENCOUNTER → 2022-09-13 15:38 | Outpatient (BNVA) | payer MEDICARE, MEDICAID, SELFPAY | PROVIDERS: PCP Nurse Practitioner Family; Visit Provider Internal Medicine | DX: R76.8 Other specified abnormal immunological findings in serum (principal); M25.641 Stiffness of right hand, not elsewhere classified; M25.642 Stiffness of left hand, not elsewhere classified; J43.2 Centrilobular emphysema; Z91.018 Allergy to other foods | CPT/HCPCS: 99214 ==

== ENCOUNTER 2024-01-19 17:17 | Emergency (ER) | payer MEDICARE, MEDICAID, SELFPAY ==
[2024-01-19] VITALS (7 sets, daily range): BP systolic 165–233; BP diastolic 74–120; PULSE 72–89; RESP 16–23; TEMP 37; O2SAT 92–98; BMI 27.3
--- NOTE | 2024-01-19 17:18 | ECG_ITS ---
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 Measurements Intervals [place] Rate: 96 P: 45 VA: 160 QRS: 21 QRSD: 76 T: 48 QT: 339 QTc: 429 Interpretive Statements SINUS RHYTHM WITH OCCASIONAL VENTRICULAR PREMATURE COMPLEXES LOW QRS VOLTAGE IN PRECORDIAL LEADS [QRS DEFLECTION < 1.0 mV IN CHEST LEADS] Compared to ECG 06/02/2017 21:18:57 Ventricular premature complex(es) now present Low QRS voltage now present Electronically Signed On 01-20-2024 13:38:48 CDT by Jose D Peñaloza M.D. [email or web address]
--- NOTE | 2024-01-19 17:46 | XRR_ITS ---
PROCEDURE INFORMATION: Exam: XR Chest Exam date and time: 01/19/2024 6:17 PM Age: 68 years old Clinical indication: Dyspnea TECHNIQUE: Imaging protocol: Radiologic exam of the chest. Views: 1 view. COMPARISON: CT lung screening [id number] 03/18/2022 1:07 PM FINDINGS: Lungs: Unremarkable. No consolidation. Pleural spaces: Unremarkable. No pleural effusion. No pneumothorax. Heart/Mediastinum: Unremarkable. No cardiomegaly. Bones/joints: Unremarkable. XR/XR chest 1V portable [id number] IMPRESSION: No acute findings.
--- NOTE | 2024-01-19 17:49 | W.ED.SOB ---
HPI - SOB/Dyspnea General: Chief Complaint: Shortness of Breath/Dyspnea Stated Complaint: SOB Time Seen by Provider: 01/19/24 17:46 [facility] PFSH: Medical History (Updated 09/13/22 @ 16:13 by Wander Lang MD) Allergy to alpha-gal Fatigue MAYA positive Lymphoma Claudication in peripheral vascular disease COPD (chronic obstructive pulmonary disease) History of colon cancer Diabetes Chronic constipation Surgical History H/O esophagogastroduodenoscopy (05/18/21) Hiatal hernia, gastritis S/P appendectomy S/P cholecystectomy History of hemorrhoidectomy History of laparoscopic cholecystectomy History of right knee joint replacement History of colon resection (~2017) History of colonoscopy with polypectomy (05/18/21) Diverticulosis, sigmoid polyp Family History Family/Other Cancer colon cancer Hypertension Denies family history of Anesthesia complication Bleeding disorder Social History Smoking and tobacco/nicotine status: current every day tobacco/nicotine user cigarettes Packs smoked per day: 1 Years cigarettes smoked: 50 Second hand smoke exposure: Yes Alcohol intake: never Substance/Drug Use: never Adopted: No Lives independently: Yes Household members: none Housing: House Marital status: Current occupational status: disabled Pets and animals: Yes Do you think of yourself as: Straight/Heterosexual Current gender identity: Female Course Vital Signs: Vital signs: Vital Signs Temperature 98.6 F 01/19/24 17:26 Pulse Rate 84 01/19/24 17:26 Respiratory Rate 20 H 01/19/24 17:26 Blood Pressure 189/82 01/19/24 17:26 Pulse Oximetry 96 01/19/24 17:26 Oxygen Delivery Me thod Room Air 01/19/24 17:26 Discharge Plan Discharge Condition: Stable Prescriptions: No Action Xtampza ER 18 mg cap,sprinkl,ER12hr(DONT CRUSH) 18 mg PO BID hydrocodone-acetaminophen [[place]] 10-325 mg tablet 1 tab PO Q6H PRN (Reason: Pain) docusate sodium [Colace] 100 mg capsule 200 mg PO DAILY cetirizine [Zyrtec] 10 mg tablet 10 mg PO DAILY Linzess 145 mcg capsule 145 mcg PO DAILY PRN (Reason: Abdominal Discomfort) diphenhydramine HCl [Benadryl] 25 mg capsule 25 mg PO DAILY PRN (Reason: Sleep) baclofen 10 mg tablet 5 mg PO TID nitroglycerin [Nitrostat] 0.4 mg tablet, sublingual 0.4 mg sublingual Q5M PRN (Reason: Chest Pain) Rx Instructions: do not exceed 3 doses per episode Tumeric with Christie 1 tab PO DAILY milk thistle 150 mg capsule 150 mg PO DAILY Rx Instructions: give with meal/snack vitamin B complex [B Complex-Vitamin B12] Tablet 1 tab PO DAILY Tart Gonzalez Extract 1,000 mg capsule 1,000 mg PO DAILY ibuprofen 200 mg capsule 200 mg PO Q6H PRN (Reason: Pain) senna 8.6 mg capsule 8.6 mg PO BID PRN (Reason: Constipation) beet root 1 tab PO EVERY OTHER DAY cholecalciferol (vitamin D3) 50 mcg (2,000 unit) capsule 100 mcg PO DAILY melatonin 10 mg capsule 10 mg PO DAILY apple cider vinegar 500 mg tablet 500 mg PO DAILY Dexilant 60 mg capsule,biphase delayed releas 60 mg PO DAILY 30 Days Qty: 30 2RF albuterol sulfate 2.5 mg /3 mL (0.083 %) solution for nebulization 2.5 mg inhalation Q4H PRN (Reason: Shortness Of Breath) Qty: 90 3RF meloxicam 15 mg tablet 15 mg PO DAILY Qty: 30 3RF hydroxychloroquine 200 mg tablet 200 mg PO BID Qty: 60 3RF diclofenac sodium [Arthritis Pain (diclofenac)] 1 % gel 4 g topical QID Qty: 100 2RF Rx Instructions: apply to single knee, ankle, foot; for foot includes sole/toes/top of foot Trelegy Ellipta 100-62.5-25 mcg blister with device 1 inh inhalation DAILY Qty: 60 5RF albuterol sulfate [ProAir HFA] 90 mcg/actuation HFA aerosol inhaler 2 puff inhalation Q6H PRN (Reason: shortness of breath or wheezing) Qty: 8.5 11RF montelukast 10 mg tablet 10 mg PO DAILY Qty: 30 2RF Rx Instructions: need appointment for future refills montelukast 10 mg tablet 10 mg PO DAILY Qty: 30 6RF metoprolol succinate 25 mg tablet extended release 24 hr 12.5 mg PO DAILY Qty: 45 1RF Rx Instructions: MUST MAKE APPOINTMENT AND BE SEEN FOR FURTHER REFILLS ketoconazole 2 % shampoo 1 applic TOPICAL DAILY PRN (Reason: Itching) triamcinolone acetonide 0.1 % cream 1 applic TOPICAL BID PRN (Reason: Rash) pregabalin 50 mg capsule 50 mg PO TID Januvia 100 mg Tablet 100 mg PO DAILY Referrals: Eileen Valdez [Primary Care Provider] - Coding Level of Care Code ED Medical Secretary for Chg Greg
[2024-01-19 17:55] LABS: Basophils # 0.1 10^3/uL (0.0-0.1); Basophils % 0.8 %; Eosinophils # 0.6 10^3/uL (0.0-0.8); Hematocrit 42.2 % (36-47); Lymphocytes # 3.7 10^3/uL (0.8-4.8); Lymphocytes % 25.9 %; Mean Corpuscular HGB Conc 34.1 g/dL (30-55); Mean Corpuscular Hemoglobin 29.4 pg (27-33); Mean Corpuscular Volume 86.3 fl (85-98); Mean Platelet Volume 10.5 fL (7.4-10.4); Monocytes # 0.6 10^3/uL (0.2-0.9); Monocytes % 4.3 %; Neutrophils # 9.19 10^3/uL (1.8-7.7); Neutrophils % 64.5 %; Nucleated Red Blood Cells % 0 %; Platelet Count 288 10^3/cmm (157-399); Red Blood Count 4.89 10^6/uL (3.85-5.65); Red Cell Distribution Width 12.7 % (12.1-15.1); White Blood Count 14.23 10^3/uL (3.29-11.43)
--- NOTE | 2024-01-19 17:58 | CTR_ITS ---
PROCEDURE INFORMATION: Exam: CTA Chest With Contrast Exam date and time: 01/19/2024 7:15 PM Age: 68 years old Clinical indication: Dyspnea; Prior surgery; Surgery date: 6+ months; Surgery type: Gb/appy; Patient HX: PT here via pov sent from [facility] with C/O SOB. PT reports SOB since . PT states when she takes abx SOB improves but when she stops it worsens. PT has audible wheezing. TECHNIQUE: Imaging protocol: Computed tomographic angiography of the chest with contrast. Exam focused on the arteries. 3D rendering (Not supervised by radiologist): MIP and/or 3D reconstructed images were created by the technologist. Radiation optimization: All CT scans at this facility use at least one of these dose optimization techniques: automated exposure control; mA and/or kV adjustment per patient size (includes targeted exams where dose is matched to clinical indication); or iterative reconstruction. Contrast material: OMNI 3550; Contrast volume: 70 ml; Contrast route: INTRAVENOUS (IV); COMPARISON: CT lung screening [id number] 03/18/2022 1:07 PM RADIATION DOSE METRICS: Total DLP (mGy-cm): 441 FINDINGS: Pulmonary arteries: No pulmonary emboli. Aorta: Unremarkable. No aortic aneurysm. No aortic dissection. Lungs: No focal consolidations. Pleural spaces: Unremarkable. No pneumothorax. No pleural effusion. Heart: Unremarkable. No cardiomegaly. No pericardial effusion. Coronary arteries: Coronary arterial atherosclerotic calcifications are present. Lymph nodes: Unremarkable. No enlarged lymph nodes. Liver: The liver is diffusely low in attenuation consistent with hepatic steatosis. Bones/joints: Unremarkable. No acute fracture. Soft tissues: Unremarkable. CT/CT angio chest PE protcl [id number] IMPRESSION: 1. No pulmonary emboli. 2. No focal consolidations.
[2024-01-19 18:13] LABS: ABG PCO2 41.9 mmHg (35-45); Alveolar-Arterial Oxygen Gradi 2.6 mmHg (5-10); Arterial Blood Gas Hematocrit 41.1 % (37-47); Base Excess ABG 1.2 mmol/L (-2.0-2.0); Blood Gas Allen Test Pos; Blood Gas Operator Identificat WALCI; Blood Gas Sample Site Radial, left; Blood Gas Sample Type Arterial; Carboxyhemoglobin 1.1 %THgb (0.4-20.1); HCO3 ABG 26.2 mmol/L (22-26); HGB O2 Sat 95.5 % (95-100); Ionized Calcium Level - ABG 1.3 mmol/L (1.1-1.4); Oxygen Device ROOM AIR; Oxygen Saturation ABG 96.5; PO2 ABG 78.8 mmHg (80.0-100.0); PO2 FiO2 Ratio Arterial Blood 0; Potassium Level - ABG 3.9 mmol/L (3.5-5.0); Total Hemoglobin 13.4 g/dL (12-16)
[2024-01-19] MEDS: ipratropium-albuterol 3 mL Neb INHALATION (18:15)
[2024-01-19 18:18] LABS: Troponin(5th) Baseline 9 ng/L (0-10)
[2024-01-19 18:29] LABS: Alanine Aminotransferase 31 U/L (0-33); Albumin Level 4.7 g/dL (3.5-5.2); Alkaline Phosphatase 90 U/L (35-105); Anion Gap 17.3 (5-19); Aspartate Amino Transferase 32 U/L (0-32); Blood Urea Nitrogen 8 mg/dL (8-23); Calcium 10.7 mg/dL (8.5-10.5); Carbon Dioxide 27 mmol/L (22-29); Chloride 99 mmol/L (98-107); Creatinine Clr Calc Pharmacy 57.5504; Globulin 3.5 g/dL (1.3-4.6); Glomerular Filtration Rate 83.7 mL/min (90-130); Glucose 232 mg/dL (65-115); NT Pro B Type Natriuretic Pept 251 pg/mL (0-125); Osmolality Calculated 294 mOsm/kg (285-295); Potassium 4.3 mmol/L (3.5-5.1); Sodium 139 mmol/L (136-145); Total Bilirubin 0.2 mg/dL (0.15-1.2); Total Protein 8.2 g/dL (6.6-8.7)
[2024-01-19 18:36] LABS: Procalcitonin 0.08 ng/mL (0-0.5)
--- NOTE | 2024-01-19 18:51 | PC.NURSE ---
Assumed care from Marly MAGANA at this time.
[2024-01-19] MEDS: iohexol 350 mg/mL 500 mL Btl (per mL) IV (19:25)
[2024-01-19 19:58] LABS: Troponin 5 2HR 8.23 ng/L (0-10)
[2024-01-19 20:05] LABS: Troponin 5 2HR Delta -0.77 ABS# (0-10)
--- NOTE | 2024-01-19 20:09 | ECG_ITS ---
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 Measurements Intervals [place] Rate: 80 P: 54 FL: 177 QRS: 45 QRSD: 78 T: 57 QT: 381 QTc: 442 Interpretive Statements SINUS RHYTHM LOW QRS VOLTAGE IN PRECORDIAL LEADS [QRS DEFLECTION < 1.0 mV IN CHEST LEADS] Compared to ECG 01/19/2024 17:18:57 Ventricular premature complex(es) no longer present Electronically Signed On 01-20-2024 14:00:03 CDT by Jose D Peñaloza M.D. [id number]
[2024-01-19 20:11] LABS: Add Urine Microscopic? NO; Charge for UA Resulting for Rev
[2024-01-19 20:13] LABS: Bilirubin Urine Neg (Negative); Blood Urine Neg (Negative); Glucose Urine UA 2+ (Normal); Ketones Urine Negative (Negative); Leukocyte Esterase Urine Negative (Negative); Nitrate Urine Negative (Negative); Protein Urine Neg (Negative); Specific Gravity, Urine 1.005 (1.005-1.030); Urine Appearance Clear (CLEAR); Urine Color Yellow (Yellow); Urobilinogen Urine Norm (Negative); pH Urine 7 (5-7)
--- NOTE | 2024-01-19 20:19 | ED_ITS ---
HPI - SOB/Dyspnea 2 General: Chief Complaint: Shortness of Breath/Dyspnea Stated Complaint: SOB Time Seen by Provider: 01/19/24 17:46 History of Present Illness: HPI Narrative: Patient presenting to the emergency room with shortness of breath. Cough, reported fevers. She is afebrile here. She is a bit tachypneic. Review of Systems 2 Narrative: Constitutional symptoms: Negative except as documented in HPI. Skin symptoms: Negative except as documented in HPI. Eye symptoms: Negative except as documented in HPI. ENMT symptoms: Negative except as documented in HPI. Respiratory symptoms: Negative except as documented in HPI. Cardiovascular symptoms: Negative except as documented in HPI. Gastrointestinal symptoms: Negative except as documented in HPI. Genitourinary symptoms: Negative except as documented in HPI. Musculoskeletal symptoms: Negative except as documented in HPI. Neurologic symptoms: Negative except as documented in HPI. Psychiatric symptoms: Negative except as documented in HPI. Endocrine symptoms: Negative except as documented in HPI. PFSH ED 2 PFSH: Medical History (Updated 01/19/24 @ 20:14 by Ruth Ferguson MD) Allergy to alpha-gal Fatigue MAYA positive Lymphoma Claudication in peripheral vascular disease COPD (chronic obstructive pulmonary disease) History of colon cancer Diabetes Chronic constipation Surgical History H/O esophagogastroduodenoscopy (05/18/21) Hiatal hernia, gastritis S/P appendectomy S/P cholecystectomy History of hemorrhoidectomy History of laparoscopic cholecystectomy History of right knee joint replacement History of colon resection (~2017) History of colonoscopy with polypectomy (05/18/21) Diverticulosis, sigmoid polyp Family History Family/Other Cancer colon cancer Hypertension Denies family history of Anesthesia complication Bleeding disorder Social History Smoking and tobacco/nicotine status: current every day tobacco/nicotine user cigarettes Packs smoked per day: 1 Years cigarettes smoked: 50 Second hand smoke exposure: Yes Alcohol intake: never Substance/Drug Use: never Adopted: No Lives independently: Yes Household members: none Housing: House Marital status: Current occupational status: disabled Pets and animals: Yes Do you think of yourself as: Straight/Heterosexual Current gender identity: Female Physical Exam 2 Narrative: EXAM NARRATIVE: General: Alert, no acute distress. Skin: Warm, dry. Head: Normocephalic, atraumatic. Neck: Supple, trachea midline. Eye: Extraocular movements are intact. Ears, nose, mouth and throat: Oral mucosa moist. Cardiovascular: Regular rate and rhythm, Normal peripheral perfusion. Respiratory: some expiratory wheeze, mild increased wob, breath sounds are equal, Symmetrical chest wall expansion. Gastrointestinal: Soft, Nontender, Non distended, Normal bowel sounds. Musculoskeletal: Normal ROM, no deformity. Neurological: Alert and oriented to person, place, time, and situation, No focal neurological deficit observed. Psychiatric: Cooperative, appropriate mood & affect. Course 2 Vital Signs: Vital signs: Vital Signs Temperature 98.6 F 01/19/24 17:26 Pulse Rate 85 01/19/24 19:34 Respiratory Rate 23 H 01/19/24 19:34 Blood Pressure 207/74 01/19/24 19:34 Pulse Oximetry 98 01/19/24 19:34 Oxygen Delivery Me thod Room Air 01/19/24 18:04 MDM - SOB/Dyspnea Medical Decision Making Differential diagnosis for patient with shortness of breath includes but is not limited to and based on the above HPI, review of systems and physical exam: Pneumonia. Bronchitis. Asthma or COPD with acute exacerbation. Acute coronary syndrome / [place]. Pulmonary embolism. Anxiety. Congestive heart failure. Viral infections including influenza and Covid-19. Atrial fibrillation. Anxiety. Pleural effusion. Pneumothorax. Workup: Lab work, chest X-ray and EKG ordered to evaluate, rule in and rule out above pathologies Lab Review: Laboratory results were reviewed and interpreted by myself the emergency room physician. Patient has mild leukocytosis with a white count of 14,000. Renal function is normal at a BUN of 8 and creatinine 1.7. Chest x-ray: No acute process. No infiltrate. No pneumothorax. No cardiomegaly. This was reviewed and interpreted by myself the ER physician. EKG: Normal sinus rhythm, No ST-T changes, no ectopy, normal VA & QRS intervals, This was reviewed and interpreted by myself the ER physician CTA of the chest: No PE. No infiltrates. This was reviewed and interpreted by myself the emergency room physician. I also reviewed the radiology report. I reviewed the patient's medical record. Assessment and plan: COPD exacerbation Upper respiratory infection ? Doxycycline and dexamethasone in the emergency room. - Discharged home - Discussed plan with patient. Answered any questions. - Evaluation and treatment of this problem were appropriate in the emergency setting. Lab Data 01/19/24 17:46 01/19/24 17:46 Labs/Radiology: Radiology Impressions Chest X-Ray 01/19/24 17:46 IMPRESSION: No acute findings. Chest CTA 01/19/24 17:58 IMPRESSION: 1. No pulmonary emboli. 2. No focal consolidations. Laboratory Results WBC 14.23 10^3/uL (3.29-11.43) H 01/19/24 17:46 RBC 4.89 10^6/uL (3.85-5.65) 01/19/24 17:46 Hgb 14.40 g/dL (11.27-16.99) 01/19/24 17:46 Hct 42.2 % (36-47) 01/19/24 17:46 MCV 86.3 fl (85-98) 01/19/24 17:46 MCH 29.4 pg (27-33) 01/19/24 17:46 MCHC 34.1 g/dL (30-55) 01/19/24 17:46 RDW 12.7 % (12.1-15.1) 01/19/24 17:46 Plt Count 288 10^3/cmm (157-399) 01/19/24 17:46 MPV 10.5 fL (7.4-10.4) H 01/19/24 17:46 Neut % (Auto) 64.5 % 01/19/24 17:46 Lymph % (Auto) 25.9 % 01/19/24 17:46 [place] % (Auto) 4.3 % 01/19/24 17:46 Eos % (Auto) 4.0 % 01/19/24 17:46 Baso % (Auto) 0.8 % 01/19/24 17:46 Neut # (Auto) 9.19 10^3/uL (1.8-7.7) H 01/19/24 17:46 Lymph # (Auto) 3.7 10^3/uL (0.8-4.8) 01/19/24 17:46 [place] # (Auto) 0.6 10^3/uL (0.2-0.9) 01/19/24 17:46 Eos # (Auto) 0.6 10^3/uL (0.0-0.8) 01/19/24 17:46 Baso # (Auto) 0.1 10^3/uL (0.0-0.1) 01/19/24 17:46 Nucleated RBC % (auto) 0 % 01/19/24 17:46 Nucleated RBCs # 0.0 /100WBC 01/19/24 17:46 Specimen Type Arterial 01/19/24 18:02 Sample Site Radial, left 01/19/24 18:02 ABG pH 7.40 (7.35-7.45) 01/19/24 18:02 ABG pCO2 41.9 mmHg (35-45) 01/19/24 18:02 ABG pO2 78.8 mmHg (80.0-100.0) L 01/19/24 18:02 ABG PO2/FiO2 Ratio 0 01/19/24 18:02 ABG HCO3 26.2 mmol/L (22-26) H 01/19/24 18:02 ABG O2 Saturation 96.5 01/19/24 18:02 ABG Base Excess 1.2 mmol/L (-2.0-2.0) 01/19/24 18:02 Jeromy Test Pos 01/19/24 18:02 A-a O2 Gradient 2.6 mmHg (5-10) L 01/19/24 18:02 Hematocrit 41.1 % (37-47) 01/19/24 18:02 Hgb O2 Saturation 95.5 % (95-100) 01/19/24 18:02 Carboxyhemoglobin 1.1 %THgb (0.4-20.1) 01/19/24 18:02 Methemoglobin 0.0 % (0.4-1.5) L 01/19/24 18:02 Total Hemoglobin 13.4 g/dL (12-16) 01/19/24 18:02 Sodium 140.0 mmol/L (131-143) 01/19/24 18:02 Potassium 3.9 mmol/L (3.5-5.0) 01/19/24 18:02 Glucose 274.0 mg/dL (70-115) H 01/19/24 18:02 Ionized Calcium 1.3 mmol/L (1.1-1.4) 01/19/24 18:02 O2 Delivery Device Room air 01/19/24 18:02 FiO2 21.0 % 01/19/24 18:02 Fitness Studies Teacher ID Jose 01/19/24 18:02 Sodium 139 mmol/L (136-145) 01/19/24 17:46 Potassium 4.3 mmol/L (3.5-5.1) 01/19/24 17:46 Chloride 99 mmol/L (98-107) 01/19/24 17:46 Carbon Dioxide 27 mmol/L (22-29) 01/19/24 17:46 Anion Gap 17.3 (5-19) 01/19/24 17:46 BUN 8 mg/dL (8-23) 01/19/24 17:46 Creatinine 0.7 mg/dL (0.5-0.9) 01/19/24 17:46 GFR Calculation 83.7 mL/min (90-130) L 01/19/24 17:46 Glucose 232 mg/dL (65-115) H 01/19/24 17:46 Calculated Osmolality 294 mOsm/kg (285-295) 01/19/24 17:46 Calcium 10.7 mg/dL (8.5-10.5) H 01/19/24 17:46 Total Bilirubin 0.2 mg/dL (0.15-1.2) 01/19/24 17:46 AST 32 U/L (0-32) 01/19/24 17:46 ALT 31 U/L (0-33) 01/19/24 17:46 Alkaline Phosphatase 90 U/L (35-105) 01/19/24 17:46 Troponin T Baseline 9 ng/L (0-10) 01/19/24 17:46 Troponin T 120 Minute 8.23 ng/L (0-10) 01/19/24 19:35 Delta Troponin T -0.77 ABS# (0-10) L 01/19/24 19:35 NT-Pro-B Natriuret Pep 251 pg/mL (0-125) H 01/19/24 17:46 Total Protein 8.2 g/dL (6.6-8.7) 01/19/24 17:46 Albumin 4.7 g/dL (3.5-5.2) 01/19/24 17:46 Globulin 3.5 g/dL (1.3-4.6) 01/19/24 17:46 Procalcitonin 0.08 ng/mL (0-0.5) 01/19/24 17:46 Urine Color Yellow (Yellow) 01/19/24 18:54 Urine Appearance Clear (CLEAR) 01/19/24 18:54 Urine pH 7 (5-7) 01/19/24 18:54 Ur Specific [place] 1.005 (1.005-1.030) 01/19/24 18:54 Urine Protein Neg (Negative) 01/19/24 18:54 Urine Glucose (UA) 2+ (Normal) H 01/19/24 18:54 Urine Ketones Negative (Negative) 01/19/24 18:54 Urine Blood Neg (Negative) 01/19/24 18:54 Urine Nitrate Negative (Negative) 01/19/24 18:54 Urine Bilirubin Neg (Negative) 01/19/24 18:54 Urine Urobilinogen Norm mg/dL (Negative) 01/19/24 18:54 Ur Leukocyte Esterase Negative (Negative) 01/19/24 18:54 All radiology interpretation(s) finalized by discharge Discharge Plan Discharge Patient Disposition: Home Clinical Impression: Acute exacerbation of chronic obstructive airways disease, Acute upper respiratory infection Condition: Stable Prescriptions: New doxycycline hyclate 100 mg capsule 100 mg PO BID 7 Days Qty: 14 0RF dexamethasone 6 mg tablet 6 mg PO DAILY 5 Days Qty: 5 0RF No Action Xtampza ER 18 mg cap,sprinkl,ER12hr(DONT CRUSH) 18 mg PO BID hydrocodone-acetaminophen [[place]] 10-325 mg tablet 1 tab PO Q6H PRN (Reason: Pain) docusate sodium [Colace] 100 mg capsule 200 mg PO DAILY cetirizine [Zyrtec] 10 mg tablet 10 mg PO DAILY Linzess 145 mcg capsule 145 mcg PO DAILY PRN (Reason: Abdominal Discomfort) diphenhydramine HCl [Benadryl] 25 mg capsule 25 mg PO DAILY PRN (Reason: Sleep) baclofen 10 mg tablet 5 mg PO TID nitroglycerin [Nitrostat] 0.4 mg tablet, sublingual 0.4 mg sublingual Q5M PRN (Reason: Chest Pain) Rx Instructions: do not exceed 3 doses per episode Tumeric with [place] 1 tab PO DAILY milk thistle 150 mg capsule 150 mg PO DAILY Rx Instructions: give with meal/snack vitamin B complex [B Complex-Vitamin B12] Tablet 1 tab PO DAILY Tart Gonzalez Extract 1,000 mg capsule 1,000 mg PO DAILY ibuprofen 200 mg capsule 200 mg PO Q6H PRN (Reason: Pain) senna 8.6 mg capsule 8.6 mg PO BID PRN (Reason: Constipation) beet root 1 tab PO EVERY OTHER DAY cholecalciferol (vitamin D3) 50 mcg (2,000 unit) capsule 100 mcg PO DAILY melatonin 10 mg capsule 10 mg PO DAILY apple cider vinegar 500 mg tablet 500 mg PO DAILY Dexilant 60 mg capsule,biphase delayed releas 60 mg PO DAILY 30 Days Qty: 30 2RF albuterol sulfate 2.5 mg /3 mL (0.083 %) solution for nebulization 2.5 mg inhalation Q4H PRN (Reason: Shortness Of Breath) Qty: 90 3RF meloxicam 15 mg tablet 15 mg PO DAILY Qty: 30 3RF hydroxychloroquine 200 mg tablet 200 mg PO BID Qty: 60 3RF diclofenac sodium [Arthritis Pain (diclofenac)] 1 % gel 4 g topical QID Qty: 100 2RF Rx Instructions: apply to single knee, ankle, foot; for foot includes sole/toes/top of foot Tre[place]y Ellipta 100-62.5-25 mcg blister with device 1 inh inhalation DAILY Qty: 60 5RF albuterol sulfate [ProAir HFA] 90 mcg/actuation HFA aerosol inhaler 2 puff inhalation Q6H PRN (Reason: shortness of breath or wheezing) Qty: 8.5 11RF montelukast 10 mg tablet 10 mg PO DAILY Qty: 30 2RF Rx Instructions: need appointment for future refills montelukast 10 mg tablet 10 mg PO DAILY Qty: 30 6RF metoprolol succinate 25 mg tablet extended release 24 hr 12.5 mg PO DAILY Qty: 45 1RF Rx Instructions: MUST MAKE APPOINTMENT AND BE SEEN FOR FURTHER REFILLS ketoconazole 2 % shampoo 1 applic TOPICAL DAILY PRN (Reason: Itching) triamcinolone acetonide 0.1 % cream 1 applic TOPICAL BID PRN (Reason: Rash) pregabalin 50 mg capsule 50 mg PO TID Januvia 100 mg Tablet 100 mg PO DAILY Discharge Orders: Discharge ED (Routine); Ordered 01/19/24 Ordered By: Ruth Ferguson Referrals: Eileen Valdez [Primary Care Provider] - 1-3 days Discharge Diet: Usual diet Discharge Activity: Resume usual activity Patient Instructions: Upper Respiratory Infection (ED) Activity Restrictions/Additional Instructions: Thank you for choosing [facility] for your healthcare needs today. Please realize this is an emergency room and that we are providing you with a medical screening exam and this may not be complete and all inclusive of all the testing and or work up that you may need to determine your ailment or severity of your illness. You have been screened and evaluated and felt safe for discharge. Health conditions do change or evolve sometimes and as such it is important that you follow up with your Primary Doctor to be re checked, 3-5 days is a general good time frame for follow up. You are always welcome to return to the ED for re assessment if your symptoms are worsening or you have new concerns Coding Level of Care Code ED Assistant District Attorney for [place] Garza
[2024-01-19] MEDS: doxycycline 100 MG in sodium chloride 0.9% (plus) 100 ML IV (20:31)
[2024-01-19] MEDS: HYDROcodone-acetaminophen 10-325 mg Tablet 1 TAB PO (20:31)
== END 2024-01-19 22:01 | disposition home or self-care (01) ==
PROVIDERS: Family Medicine; Nurse Practitioner Family; Emergency Provider Emergency Medicine; PCP Nurse Practitioner Family
DX: J44.1 Chronic obstructive pulmonary disease with (acute) exacerbation (principal); J06.9 Acute upper respiratory infection, unspecified; F17.210 Nicotine dependence, cigarettes, uncomplicated; Z85.72 Personal history of non-Hodgkin lymphomas; Z85.038 Personal history of other malignant neoplasm of large intestine
CPT/HCPCS: 36415; 36600; 71045; 71275; 80051; 80053; 81003; 82330; 82805; 83880; 84145; 84484; 85025; 93005; 94640; 96365; 99285; J3490; Q9967